=== PATIENT | male | born 1995 | race Caucasian/White ===

== ENCOUNTER 2016-07-21 02:19 | Emergency (ER) | payer SELFPAY ==
[2016-07-21 02:30] VITALS: TEMP 98.6; BMI 26.9
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
[2016-07-21] MEDS ORDERED: IBUPROFEN 600 MG TAB PO STA (03:38)
[2016-07-21] MEDS ORDERED: OXYCODONE HCL 5 MG TABLET PO STA (03:38)
[2016-07-21 04:19] VITALS: BP 134/58; PULSE 63
== END 2016-07-21 04:35 | disposition home or self-care (01) ==
LOC: ED 02:19
DX: S93.602A Unspecified sprain of left foot, initial encounter (principal); S83.92XA Sprain of unspecified site of left knee, initial encounter; V29.9XXA Motorcycle rider (driver) (passenger) injured in unspecified traffic accident, initial encounter
CPT/HCPCS: 73564; 73630; 99283; J3490